=== PATIENT | male | born 1965 | race Caucasian/White ===

== ENCOUNTER 2018-04-25 12:45 | Emergency (ER) | payer OTHER ==
[~2018-04-25] VITALS: Ht 177.8 cm; Wt 100.0 kg
[2018-04-25 12:48] VITALS: BP 163/98; PULSE 60; RESP 18; TEMP 97.4; O2SAT 99
[2018-04-25] MEDS ORDERED: TRAM50TA PO (13:42)
[2018-04-25] MEDS ORDERED: NAPR500T2 PO (13:42)
[2018-04-25] MEDS ORDERED: PENI500T PO (13:42)
--- NOTE | 2018-04-25 13:43 | PD ---
HPI Chief Complaint: Oral / Dental Pain or Problem Time Seen by Provider: 13:25 Travel History International Travel<30 days: Yes Contact w/Intl Traveler<30days: Yes Name of Country Traveled to: [facility], just returned from cruise Traveled to known affect area: No History of Present Illness HPI This is a 52-year-old male who presents to the emergency department having had dental pain on the left side of his mouth for 3 days, constant, moderate severity, with no associated fevers or chills. The pain is worse when he eats. He has had dental work done on that side of his mouth before but he is not sure what he had done. [facility] Past Medical History Medical History: Denies Significant Hx Social History Tobacco Use: No Allergies-Medications (Allergen,Severity, Reaction): Coded Allergies: No Known Drug Allergies (Verified Allergy, Unknown, 04/25/18) Review of Systems General / Constitutional: No: Fever, Chills Gastrointestinal: No: Nausea, Vomiting Physical Exam Narrative GENERAL: Well-appearing, no acute distress, nontoxic SKIN: Warm and dry. HEAD: Atraumatic. Normocephalic. ENT: No nasal bleeding or discharge. Moist mucous membranes. Pain with manipulation of the left most posterior molar with filling MUSCULOSKELETAL: No obvious deformities. No clubbing. No cyanosis. No edema. NEUROLOGICAL: Awake and alert. No obvious cranial nerve deficits. Motor grossly within normal limits. Normal speech. PSYCHIATRIC: Appropriate mood and affect; insight and judgment normal. Data Data Last Documented VS Vital Signs Date Time Temp Pulse Resp B/P (MAP) Pulse Ox O2 Delivery O2 Flow Rate FiO2 04/25/18 12:48 97.4 60 18 163/98 (119) 99 Orders Orders Ketorolac Inj (Toradol Inj) (04/25/18 13:45) Oxycodone-Acetamin 5-325 Mg (Percocet (04/25/18 13:45) MDM Medical Decision Making Medical Screen Exam Complete: Yes Emergency Medical Condition: Yes Differential Diagnosis Dental pain, abscess, Betito's angina Narrative Course This is a 52-year-old male who presents to the emergency department with dental pain on the left side worsening for several days. He has been taking Tylenol that has not been helping. He has no swelling of his face or fever. He will be discharged with tramadol and anti-inflammatories and will follow up with his dentist tomorrow. Diagnosis Primary Impression: Pain, dental Patient Instructions: General Instructions Additional Instructions: If you develop fever, swelling of your face or severe pain return to the emergency room. Follow-up with your dentist tomorrow. Med/Other Pt SpecificInfo: Prescription(s) given Scripts Naproxen (Naproxen) 500 Mg Tab 500 MG PO BID Y for PAIN SCALE 4 TO 10, #20 TAB 0 Refills Prov: Gita Harkins MD 04/25/18 Tramadol (Tramadol) 50 Mg Tab 50 MG PO Q6H Y for PAIN, #8 TAB 0 Refills Prov: Gita Harkins MD 04/25/18 Penicillin V Potassium (Penicillin V Potassium) 500 Mg Tab 500 MG PO Q6H for Infection for 5 Days, #20 TAB 0 Refills Prov: Gita Harkins MD 04/25/18 Disposition: 01 DISCHARGE HOME Condition: Stable Gita Harkins MD Apr 25, 2018 13:43
[2018-04-25] MEDS ORDERED: oxyCODONE/ACETAMINOPHEN 5 MG/325 MG TAB PO ONE (13:45)
[2018-04-25] MEDS ORDERED: KETOROLAC TROMETHAMINE 60 MG/2 ML (IM) VIAL IM ONE (13:45)
== END 2018-04-25 14:00 | disposition home or self-care (01) ==
LOC: NEPD 12:45
DX: K08.89 Other specified disorders of teeth and supporting structures (principal)
CPT/HCPCS: 96372; 99283; J1885